=== PATIENT | female | born 1995 | race Caucasian/White ===

== ENCOUNTER 2017-07-24 12:56 | Emergency (ER) | payer MEDICAID ==
[2017-07-24 13:10] VITALS: BP 117/69
[2017-07-24] MEDS ORDERED: Sodium Chloride 0.9% 1,000 ML IV ONE (13:23)
[2017-07-24] MEDS ORDERED: Sodium Chloride 0.9% 10 ML Syringe FLUSH PRN ×2 (13:23→13:34)
[2017-07-24] MEDS ORDERED: Iopamidol 612 MG/ML 100 ML Bottle IVPUSH ONE (13:34)
[2017-07-24] MEDS ORDERED: HYDROmorphone 0.5 MG/0.5 ML Syringe IVPUSH ONE (13:58)
--- NOTE | 2017-07-24 13:58 | EDM.PDOC ---
ED HPI GENERAL MEDICAL PROBLEM - General Chief Complaint: Abdominal Pain Stated Complaint: LOWER ABD PAIN Time Seen by Provider: 07/24/17 13:10 Source of Information: Reports: Patient History Limitations: Reports: No Limitations - History of Present Illness INITIAL COMMENTS - FREE TEXT/NARRATIVE: 22-year-old female presents for evaluation treatment of right lower quadrant abdominal pain. Patient reports that the pain began yesterday afternoon and has steadily worsened. Patient reports movement seems to make the abdominal pain worse. States it is located in the right lower quadrant. No radiation into her back, groin or flanks. She reports associated symptoms of nausea and a decreased appetite. No fevers, chills, vomiting, dysuria, hematuria, diarrhea or constipation. Last bowel movement was yesterday. She has not appreciated any blood in her stool. Last menstrual period started on June 28. She has not had any surgeries to her abdomen. Last intake was around 9:30 this morning. Patient is healthy with no known medical conditions. She is not on any medications. Duration: Day(s): (2) Location: Reports: Abdomen (RLQ) Treatments MED SPECIALIST: Reports: Other (see below) Other Treatments MED SPECIALIST: alleve Right Lower Abdominal Pain Score (Numeric/FACES): 8 - Related Data Allergies Allergy/AdvReac Type Severity Reaction Status Date / Time No Known Allergies Allergy Verified 07/24/17 13:06 Home Meds: Home Meds Acetaminophen/HYDROcodone [Bend 325-5 MG] 1 tab PO Q6H PRN #15 tablet 07/24/17 [Rx] Past Medical History - Past Health History Medical/Surgical History: Denies Medical/Surgical History Social & Family History - Tobacco Use Smoking Status *Q: Never Smoker - Caffeine Use Caffeine Use: Reports: None - Recreational Drug Use Recreational Drug Use: No ED ROS GENERAL - Review of Systems Review Of Systems: See Below Constitutional: Reports: Decreased Appetite. Denies: Fever, Chills GI/Abdominal: Reports: Abdominal Pain (RLQ), Nausea. Denies: Constipation, Diarrhea, Hematochezia, Melena, Vomiting : Reports: No Symptoms. Denies: Dysuria, Flank Pain ED EXAM, GI/ABD - Physical Exam Exam: See Below Exam Limited By: No Limitations General Appearance: Alert, WD/WN, No Apparent Distress Respiratory/Chest: No Respiratory Distress, Lungs Clear, Normal Breath Sounds Cardiovascular: Normal Peripheral Pulses, Regular Rate, Rhythm, No Murmur GI/Abdominal Exam: Normal Bowel Sounds, Soft, Tender (RLQ), Other (negative psosas sign, negative obturator sign; no pain with heel percussion). No: Guarding, Rebound Neurological: Alert, Oriented, Normal Cognition Psychiatric: Normal Affect, Normal Mood Skin Exam: Warm, Dry, Normal Color Course - Vital Signs Last Recorded V/S: Last Vital Signs Temp 37.0 C 07/24/17 13:06 Pulse 65 07/24/17 13:06 Resp 16 07/24/17 13:06 BP 117/69 07/24/17 13:06 Pulse Ox 100 07/24/17 13:06 - Orders/Labs/Meds Labs: Laboratory Tests 07/24/17 07/24/17 07/24/17 Range/Units 13:35 13:35 13:35 WBC 5.91 (3.98-10.04) K/mm3 RBC 5.04 (3.98-5.22) M/mm3 Hgb 14.2 (11.2-15.7) gm/L Hct 42.1 (34.1-44.9) % MCV 83.5 (79.4-94.8) fl MCH 28.2 (25.6-32.2) pg MCHC 33.7 (32.2-35.5) g/dl RDW Std Deviation 40.7 (36.4-46.3) fL Plt Count 222 (182-369) K/mm3 MPV 9.6 (9.4-12.3) fl Neutrophils % (Manual) 55 (40-60) % Band Neutrophils % 0 (0-10) % Lymphocytes % (Manual) 38 (20-40) % Atypical Lymphs % 0 % Monocytes % (Manual) 7 (2-10) % Eosinophils % (Manual) 0 L (0.7-5.8) % Basophils % (Manual) 0 L (0.1-1.2) Platelet Estimate Adequate RBC Morph Comment Normal Sodium 140 (136-145) mEq/L Potassium 4.3 (3.5-5.1) mEq/L Chloride 105 (98-107) mEq/L Carbon Dioxide 26 (21-32) mEq/L Anion Gap 13.3 (5-15) BUN 14 (7-18) mg/dL Creatinine 1.0 (0.55-1.02) mg/dL Est Cr Clr Drug Dosing 83.31 mL/min Estimated GFR (MDRD) > 60 (>60) mL/min BUN/Creatinine Ratio 14.0 (14-18) Glucose 90 (74-106) mg/dL Calcium 9.3 (8.5-10.1) mg/dL Total Bilirubin 0.5 (0.2-1.0) mg/dL AST 25 (15-37) U/L ALT 22 (14-59) U/L Alkaline Phosphatase 74 (46-116) U/L C-Reactive Protein < 0.2 (<1.0) mg/dL Total Protein 7.6 (6.4-8.2) g/dl Albumin 4.6 (3.4-5.0) g/dl Globulin 3.0 gm/dL Albumin/Globulin Ratio 1.5 (1-2) HCG, Qual Negative (NEGATIVE) Urine Color (Yellow) Urine Appearance (Clear) Urine pH (5.0-8.0) Ur Specific Harleigh (1.005-1.030) Urine Protein (Negative) Urine Glucose (UA) (Negative) Urine Ketones (Negative) Urine Occult Blood (Negative) Urine Nitrite (Negative) Urine Bilirubin (Negative) Urine Urobilinogen (0.2-1.0) Ur Leukocyte Esterase (Negative) Urine RBC (0-5) /hpf Urine WBC (0-5) /hpf Ur Epithelial Cells (0-5) /hpf Urine Bacteria (FEW) /hpf Urine Mucus (FEW) /hpf 07/24/17 Range/Units 13:45 WBC (3.98-10.04) K/mm3 RBC (3.98-5.22) M/mm3 Hgb (11.2-15.7) gm/L Hct (34.1-44.9) % MCV (79.4-94.8) fl MCH (25.6-32.2) pg MCHC (32.2-35.5) g/dl RDW Std Deviation (36.4-46.3) fL Plt Count (182-369) K/mm3 MPV (9.4-12.3) fl Neutrophils % (Manual) (40-60) % Band Neutrophils % (0-10) % Lymphocytes % (Manual) (20-40) % Atypical Lymphs % % Monocytes % (Manual) (2-10) % Eosinophils % (Manual) (0.7-5.8) % Basophils % (Manual) (0.1-1.2) Platelet Estimate RBC Morph Comment Sodium (136-145) mEq/L Potassium (3.5-5.1) mEq/L Chloride (98-107) mEq/L Carbon Dioxide (21-32) mEq/L Anion Gap (5-15) BUN (7-18) mg/dL Creatinine (0.55-1.02) mg/dL Est Cr Clr Drug Dosing mL/min Estimated GFR (MDRD) (>60) mL/min BUN/Creatinine Ratio (14-18) Glucose (74-106) mg/dL Calcium (8.5-10.1) mg/dL Total Bilirubin (0.2-1.0) mg/dL AST (15-37) U/L ALT (14-59) U/L Alkaline Phosphatase (46-116) U/L C-Reactive Protein (<1.0) mg/dL Total Protein (6.4-8.2) g/dl Albumin (3.4-5.0) g/dl Globulin gm/dL Albumin/Globulin Ratio (1-2) HCG, Qual (NEGATIVE) Urine Color Yellow (Yellow) Urine Appearance Clear (Clear) Urine pH 7.0 (5.0-8.0) Ur Specific Harleigh 1.020 (1.005-1.030) Urine Protein Negative (Negative) Urine Glucose (UA) Negative (Negative) Urine Ketones Negative (Negative) Urine Occult Blood Trace-intact H (Negative) Urine Nitrite Negative (Negative) Urine Bilirubin Negative (Negative) Urine Urobilinogen 0.2 (0.2-1.0) Ur Leukocyte Esterase Trace H (Negative) Urine RBC Not seen (0-5) /hpf Urine WBC 0-5 (0-5) /hpf Ur Epithelial Cells 10-20 H (0-5) /hpf Urine Bacteria Not seen (FEW) /hpf Urine Mucus Not seen (FEW) /hpf Meds: Medications Discontinued Medications Generic Name Dose Route Start Last Admin Trade Name Freq PRN Reason Stop Dose Admin Diatrizoate Meglum/Diatrizoate Sod 120 ml 07/24/17 14:37 07/24/17 14:38 Gastrografin 37% PO 07/24/17 14:38 90 ml ONETIME ONE Administration Hydromorphone HCl 0.5 mg 07/24/17 13:58 07/24/17 14:02 Dilaudid IVPUSH 07/24/17 13:59 0.5 mg ONETIME ONE Administration Sodium Chloride 1,000 mls @ 999 mls/hr 07/24/17 13:23 07/24/17 13:43 Normal Saline IV 07/24/17 14:23 999 mls/hr ONETIME ONE Administration Iopamidol 100 ml 07/24/17 13:34 07/24/17 14:37 Isovue-300 (61%) IVPUSH 07/24/17 13:35 100 ml ONETIME ONE Administration Sodium Chloride 10 ml 07/24/17 13:23 07/24/17 13:44 Saline Flush FLUSH 10 ml ASDIRECTED PRN Administration Keep Vein Open Sodium Chloride 10 ml 07/24/17 13:34 07/24/17 14:37 Saline Flush FLUSH 10 ml ONETIME PRN Administration IV FLUSH - Radiology Interpretation Free Text/Narrative:: CT of the abdomen and pelvis with contrast impression per [facility]rad: 5.5 cm right adnexal cyst. Recommend pelvic ultrasound follow-up in 6-[address] Results Date: 07/24/17 - Re-Assessments/Exams Free Text/Narrative Re-Assessment/Exam: 07/24/17 15:54 I reviewed the labs and CT report with the patient. She reports that she is currently having little discomfort. She did receive 0.5 mg IV Dilaudid for pain control. I will have her follow up with OB for this. She will require an ultrasound in 6- 12 weeks. Discharge instructions as documented. Departure - Departure Time of Disposition: 15:55 Disposition: Home, Self-Care 01 Condition: Good Clinical Impression: Adnexal cyst - Discharge Information Prescriptions: Acetaminophen/HYDROcodone [Bend 325-5 MG] 1 tab PO Q6H PRN #15 tablet PRN Reason: Pain Instructions: Ovarian Cyst, [id number] Referrals: PCP,None [Primary Care Provider] - Cary Urbina MD [Physician] - Forms: ED Department Discharge Additional Instructions: you were given medication the ER that can affect your ability to drive and operate machinery. Do not drive or operate machinery within 12 hours of taking prescription narcotic pain medication. [id number] ibuprofen as needed for pain relief. For pain not relieved by ibuprofen may take Bend one tablet every 4-6 hours. Bend can be habit-forming , I recommend you take as few of these as needed to control your pain. Do not drive or operate machinery within 12 hours of taking the Bend. Follow-up with OB within 2 weeks for recheck of her symptoms. Recommend Dr. Mckeon. Call [phone] to schedule with her. He will likely need an ultrasound in 6-12 weeks to reevaluate the cyst. Zofran 1 tab sublingual as needed for nausea. Please return to ER if your symptoms change or worsen.
[2017-07-24] MEDS ORDERED: Diatrizoate Meglumine/Diatrizoate Sodium 37% 120 ML Bottle PO ONE (14:37)
--- NOTE | 2017-07-25 09:18 | CT ---
CT abdomen and pelvis Technique: Multiple axial sections were obtained from above the dome of the diaphragm inferiorly through the pubic symphysis. Delayed images were also obtained through the bladder. Intravenous and oral contrast has been given. Comparison: No previous abdominal imaging is available. Findings: Visualized lung bases are clear. Liver and spleen show no focal parenchymal abnormality. Adrenal glands show no nodule. Kidneys show no hydronephrosis or mass. Pancreas is within normal limits. Aorta shows no aneurysmal dilatation. No retroperitoneal adenopathy or mesenteric abnormalities are seen. 5.5 cm cyst is identified within the right adnexa. Small amount of fluid seen within the cul-de-sac possibly due to cyst leakage. No additional pelvic abnormality is seen. Mild increased stool is identified within the colon. Delayed images show contrast within the distal ureters and within the bladder. Bone window settings were reviewed which appear within normal limits for the patient's age. Impression: 1. 5.5 cm cyst within the right adnexa. Small amount of fluid within the cul-de-sac possibly due to cyst leakage. Recommend follow-up pelvic ultrasound in 3-4 months to evaluate for resolution. 2. Mild increased stool throughout the colon. 3. No additional abnormality is identified on CT study of the abdomen and pelvis. Diagnostic code #3 I agree with preliminary report issued by [facility] ([facility] report finalized on 07/24/17, 4:07 PM Central Time)
== END 2017-07-24 16:30 | disposition home or self-care (01) ==
LOC: JD.ED 12:56
DX: N83.8 Other noninflammatory disorders of ovary, fallopian tube and broad ligament (principal)
CPT/HCPCS: 36415; 74177; 80053; 81001; 84703; 85025; 86140; 96361; 96374; 99284; J1170; J7040; J7050; Q9963; Q9967